=== PATIENT | female | born 1940 | race Caucasian/White ===

== ENCOUNTER 2022-12-13 15:27 | Outpatient (CLI) | payer MEDICARE ==
[2022-12-13 17:06] LABS: #Eosinphils 0.1 10x3/uL (0.0-0.5); #Monocytes 0.3 10x3/uL (0.0-1.1); %Basophils 0.8 % (0.0-2.0); %Eosinophils 2.7 % (0.0-6.0); %Lymphocytes 33.3 % (18.0-47.0); %Monocytes 8.5 % (0.0-10.0); %Neutrophils 54.4 % (40.0-75.0); Hemoglobin 12.8 g/dL (12.0-15.5); Mean Corpuscular HGB CONC 33.5 g/dL (32.0-36.0); Mean Corpuscular Hemoglobin 31.6 pg (27.0-33.0); Mean Corpuscular Volume 94.3 fl (81.6-98.3); Mean Platelet Volume 11.6 fl (7.4-10.4); Platelet Count 204 10x3/uL (150-450); RBC Distribution Width 12.3 % (11.5-14.5); Red Blood Cell (RBC) Count 4.05 10x6/uL (3.90-5.03); White Blood Cell (WBC) Count 3.8 10x3/uL (3.5-10.5)
[2022-12-13 17:15] LABS: Anion Gap 16 mmol/L (10-20); BUN (Urea Nitrogen) 28 mg/dL (9.8-20.1); Calc. Creatinine Clearance 0 mL/min (70-130); Calcium 10.2 mg/dL (7.8-10.44); Carbon Dioxide 21 mmol/L (23-31); Chloride 108 mmol/L (98-107); Estimated GFR 77; Glucose 80 mg/dL (83-110); Potassium 4.3 mmol/L (3.5-5.1); Sodium 141 mmol/L (136-145)
[2022-12-13 17:20] LABS: Large Platelets SLIGHT; Platelet Clumps MARKED; Platelet Morphology Comment PLT clumps seen-ADEQ; RBC Morphology Normal
== END 2022-12-13 15:28 | disposition home or self-care (01) ==
LOC: LABBT 15:27
PROVIDERS: ATTEND Orthopaedic Surgery Hand Surgery
DX: Z01.818 Encounter for other preprocedural examination (principal); L81.4 Other melanin hyperpigmentation
CPT/HCPCS: 80048; 85025; 85652; 93005; 93010

== ENCOUNTER 2023-05-20 21:46 | Inpatient (IN) | payer BC, MEDICARE ==
[2023-05-20 22:24] LABS: #Monocytes 0.7 thou/uL (0.11-0.59); #Neutrophils 6.9 thou/uL (1.40-6.50); %Basophils 0.1 % (0.0-1.0); %Lymphocytes 5.9 % (21.0-51.0); %Neutrophils 85.6 % (42.0-75.0); Hematocrit 29.2 % (36.0-47.0); Hemoglobin 9.9 g/dL (12.0-16.0); Mean Corpuscular HGB CONC 33.9 g/dL (32.0-36.0); Mean Corpuscular Hemoglobin 32.6 pg (27.0-31.0); Mean Corpuscular Volume 96.1 fl (78.0-98.0); Mean Platelet Volume 10.3 fL (7.4-10.4); Platelet Count 160 10x3/uL (130-400); RBC Distribution Width 12.5 % (11.5-14.5); Red Blood Cell (RBC) Count 3.04 mill/uL (4.20-5.40); White Blood Cell (WBC) Count 8.1 10x3/uL (4.8-10.8)
[2023-05-20 22:41] LABS: INR-International Normal Ratio 1.3; PTT 29.6 sec (22.9-36.1); Prothrombin Time 16.2 sec (12.0-14.7)
[2023-05-20 22:48] LABS: ALT (SGPT) 20 U/L (8-55); AST (SGOT) 34 U/L (5-34); Albumin 3.7 g/dL (3.4-4.8); Alkaline Phosphatase 81 U/L (40-110); Anion Gap 10 mmol/L (10-20); BUN (Urea Nitrogen) 18 mg/dL (9.8-20.1); Bilirubin, Total 0.8 mg/dL (0.2-1.2); Calc. Creatinine Clearance 0 mL/min (70-130); Calcium 8.5 mg/dL (7.8-10.44); Carbon Dioxide 22 mmol/L (23-31); Chloride 108 mmol/L (98-107); Estimated GFR 80; Globulin 2.2 g/dL (2.4-3.5); Glucose 124 mg/dL (83-110); Potassium 3.6 mmol/L (3.5-5.1); Protein, Total 5.9 g/dL (5.8-8.1); Sodium 136 mmol/L (136-145)
[2023-05-20] MEDS ORDERED: Ondansetron PF 4 MG/2 ML Vial ONE (23:20)
[2023-05-20] MEDS ORDERED: Morphine 4 MG/ML VIAL ONE (23:20)
[2023-05-21] MEDS ORDERED: Morphine 2 MG/ML VIAL SLOW IVP PRN
[2023-05-21] MEDS ORDERED: Promethazine HCl 25 MG/ML VIAL IM PRN
[2023-05-21] MEDS ORDERED: hydrALAZINE 20 MG/ML VIAL SLOW IVP PRN
[2023-05-21] MEDS ORDERED: Ondansetron PF 4 MG/2 ML Vial IVP PRN
[2023-05-21] MEDS ORDERED: TETANUS, DIPHTHERIA TOX,ADULT (TDVAX) 0.5 ML VIAL IM ONE
[2023-05-21] MEDS ORDERED: Dextrose 50% Abboject 50 ML SYRINGE SLOW IVP PRN
[2023-05-21] MEDS ORDERED: Dextrose 5% in Water 1,000 ML IV PRN
[2023-05-21] MEDS ORDERED: Glucagon 1 MG/ML KIT IM PRN
[2023-05-21] MEDS ORDERED: traMADol HCl 50 MG TAB PO PRN (00:08)
[2023-05-21 01:21] VITALS: BMI 26.9
[2023-05-21] MEDS: Ibuprofen 200 MG TAB PO SCH ×3 (01:31→16:35)
[2023-05-21] MEDS: Cyclobenzaprine 10 MG TAB PO PRN ×2 (01:31→20:58)
[2023-05-21] MEDS: traMADol HCl 50 MG TAB PO SCH ×2 (01:32→05:22)
[2023-05-21] MEDS: Acetaminophen 500 MG TAB PO SCH ×4 (01:33→16:34)
[2023-05-21] MEDS: Lactated Ringer's 1,000 ML IV SCH ×2 (01:34→17:58)
[2023-05-21 05:31] LABS: #Monocytes 0.8 thou/uL (0.11-0.59); #Neutrophils 6.7 thou/uL (1.40-6.50); %Basophils 0.4 % (0.0-1.0); %Eosinophils 0.5 % (0.0-10.0); %Lymphocytes 8.1 % (21.0-51.0); %Monocytes 9.2 % (0.0-10.0); %Neutrophils 81.4 % (42.0-75.0); Hematocrit 28.7 % (36.0-47.0); Hemoglobin 9.5 g/dL (12.0-16.0); Mean Corpuscular HGB CONC 33.1 g/dL (32.0-36.0); Mean Corpuscular Hemoglobin 32.5 pg (27.0-31.0); Mean Corpuscular Volume 98.3 fl (78.0-98.0); Mean Platelet Volume 12.3 fL (7.4-10.4); Platelet Count 102 10x3/uL (130-400); RBC Distribution Width 12.6 % (11.5-14.5); Red Blood Cell (RBC) Count 2.92 mill/uL (4.20-5.40); White Blood Cell (WBC) Count 8.2 10x3/uL (4.8-10.8)
[2023-05-21 06:01] LABS: Anion Gap 12 mmol/L (10-20); BUN (Urea Nitrogen) 20 mg/dL (9.8-20.1); Calc. Creatinine Clearance 58 mL/min (70-130); Calcium 8.7 mg/dL (7.8-10.44); Carbon Dioxide 23 mmol/L (23-31); Chloride 107 mmol/L (98-107); Estimated GFR 82; Glucose 107 mg/dL (83-110); Magnesium 1.9 mg/dL (1.6-2.6); Phosphorus 3.5 mg/dL (2.3-4.7); Potassium 3.7 mmol/L (3.5-5.1); Sodium 138 mmol/L (136-145)
[2023-05-21 07:49] LABS: Bacteria/HPF None Seen HPF (None Seen); Bilirubin Negative (Negative); Blood, Urine Negative (Negative); CAUTI Indications for Culture Alt mental st,lethar; Clarity Clear (Clear); Glucose, Urine (Dipstick) Normal (Negative); Ketone, Urine 10 mg/dL (Negative); Leukocyte Negative Leu/uL (Negative); Nitrite Negative (Negative); Protein, Urine (Dipstick) 20 mg/dL (Neg-Trace); RBC/HPF 0-3 HPF (0-3); Specific Gravity, Urine 1.028 (1.002-1.036); Squamous Epithelial 0-3 HPF (0-3); Urobilinogen Normal mg/dL (Less than 2); WBC/HPF 0-3 HPF (0-3); pH, Urine 5.5 (5.0-9.0)
[2023-05-21 07:50] LABS: Urine Culture Reflex No No
[2023-05-21] MEDS ORDERED: CEFAZOLIN 2 GM in Sodium Chloride 0.9% 100 ML IVPB SCH (08:00)
[2023-05-21] MEDS ORDERED: Ascorbic Acid 500 mg Chewable Tablet PO SCH (09:00)
[2023-05-21] MEDS: Multivitamin W/ Minerals 1 TAB PO SCH (09:11)
[2023-05-21] MEDS: Senokot S 8.6-50 MG TAB PO SCH ×2 (09:13→20:56)
[2023-05-21] MEDS: Polyethylene Glycol 3350 17 GM Packet PO SCH (09:13)
[2023-05-21] MEDS: Famotidine 20 MG TAB PO SCH ×2 (09:14→20:57)
[2023-05-21] MEDS: Metoprolol Tartrate 25 MG TAB PO SCH ×2 (09:14→20:57)
[2023-05-21] MEDS: Ferrous Sulfate 325 MG TAB PO SCH ×2 (09:15→16:34)
[2023-05-21] MEDS: Ascorbic Acid 500 mg Chewable Tablet PO SCH (16:35)
[2023-05-21] MEDS: Atorvastatin Calcium 20 MG TAB PO SCH (20:58)
[2023-05-22] MEDS ORDERED: Lactated Ringer's 1,000 ML IV SCH
[2023-05-22] MEDS: Ibuprofen 200 MG TAB PO SCH ×3 (00:53→18:27)
[2023-05-22] MEDS: Acetaminophen 500 MG TAB PO SCH ×3 (00:54→18:26)
[2023-05-22 05:37] LABS: #Eosinphils 0.2 thou/uL (0.0-0.7); #Monocytes 0.6 thou/uL (0.11-0.59); #Neutrophils 5.4 thou/uL (1.40-6.50); %Basophils 0.3 % (0.0-1.0); %Eosinophils 2.7 % (0.0-10.0); %Lymphocytes 9.6 % (21.0-51.0); %Monocytes 9.1 % (0.0-10.0); %Neutrophils 78.2 % (42.0-75.0); Hematocrit 27.4 % (36.0-47.0); Hemoglobin 9.2 g/dL (12.0-16.0); Mean Corpuscular HGB CONC 33.6 g/dL (32.0-36.0); Mean Corpuscular Hemoglobin 32.7 pg (27.0-31.0); Mean Corpuscular Volume 97.5 fl (78.0-98.0); Mean Platelet Volume 10.7 fL (7.4-10.4); RBC Distribution Width 12.5 % (11.5-14.5); Red Blood Cell (RBC) Count 2.81 mill/uL (4.20-5.40)
[2023-05-22 05:42] LABS: Platelet Count 127 10x3/uL (130-400)
[2023-05-22 05:55] LABS: Phosphorus 2.8 mg/dL (2.3-4.7)
[2023-05-22 06:05] LABS: Anion Gap 3 mmol/L (10-20); BUN (Urea Nitrogen) 28 mg/dL (9.8-20.1); CK (CPK) 544 U/L (29-168); Calc. Creatinine Clearance 50 mL/min (70-130); Calcium 8.7 mg/dL (7.8-10.44); Carbon Dioxide 22 mmol/L (23-31); Chloride 110 mmol/L (98-107); Estimated GFR 69; Glucose 99 mg/dL (83-110); Potassium 3.5 mmol/L (3.5-5.1); Sodium 131 mmol/L (136-145)
[2023-05-22] MEDS ORDERED: Potassium Phosphate 30 MMOL in Sodium Chloride 0.9% 250 ML 250 ML IVPB SCH (09:00)
[2023-05-22] MEDS ORDERED: Bisacodyl 10 MG SUPP PR SCH (09:15)
[2023-05-22] MEDS: Ascorbic Acid 500 mg Chewable Tablet PO SCH ×2 (09:41→18:27)
[2023-05-22] MEDS: Metoprolol Tartrate 25 MG TAB PO SCH ×2 (09:41→20:49)
[2023-05-22] MEDS: Famotidine 20 MG TAB PO SCH ×2 (09:41→20:49)
[2023-05-22] MEDS: Multivitamin W/ Minerals 1 TAB PO SCH (09:42)
[2023-05-22] MEDS: Polyethylene Glycol 3350 17 GM Packet PO SCH (09:42)
[2023-05-22] MEDS: Ferrous Sulfate 325 MG TAB PO SCH ×2 (09:42→18:27)
[2023-05-22] MEDS: Senokot S 8.6-50 MG TAB PO SCH ×2 (09:42→20:49)
[2023-05-22] MEDS ORDERED: fentaNYL PF 100 MCG/2 ML SYRINGE ONE (11:54)
[2023-05-22] MEDS ORDERED: PROPOFOL 200 MG/20 ML VIAL ONE (12:00)
[2023-05-22] MEDS ORDERED: Ondansetron PF 4 MG/2 ML Vial ONE (12:00)
[2023-05-22] MEDS ORDERED: Dexamethasone 20 MG/5 ML VIAL ONE (12:00)
[2023-05-22] MEDS ORDERED: Lidocaine 1% PF 5 ML VIAL ONE (12:00)
[2023-05-22] MEDS ORDERED: PHENYLEPHRINE-NS 100 MCG/ML 10 ML SYRINGE ONE (12:00)
[2023-05-22] MEDS ORDERED: Sodium Chloride 0.9% 100 ML ONE (12:27)
[2023-05-22] MEDS ORDERED: CEFAZOLIN 2 GM VIAL ONE (12:27)
[2023-05-22] MEDS ORDERED: Ondansetron HCl/PF 4 MG/2 ML Vial IVP PRN (13:36)
[2023-05-22] MEDS ORDERED: Promethazine HCl 25 MG/ML VIAL IM PRN (13:36)
[2023-05-22] MEDS ORDERED: fentaNYL 50 mcg/mL 1 mL Vial ONE ×3 (13:46→14:19)
[2023-05-22] MEDS: Acetaminophen/Codeine 30-300mg Tablet PO PRN (20:47)
[2023-05-22] MEDS: Atorvastatin Calcium 20 MG TAB PO SCH (20:49)
[2023-05-22] MEDS: CEFAZOLIN 2 GM in Sodium Chloride 0.9% 100 ML IVPB SCH (20:50)
[2023-05-23] MEDS: Ibuprofen 200 MG TAB PO SCH ×3 (00:02→17:06)
[2023-05-23] MEDS: CEFAZOLIN 2 GM in Sodium Chloride 0.9% 100 ML IVPB SCH (04:58)
[2023-05-23] MEDS: Acetaminophen/Codeine 30-300mg Tablet PO PRN (05:06)
[2023-05-23] MEDS: Acetaminophen 500 MG TAB PO SCH ×4 (05:09→17:07)
[2023-05-23 06:06] LABS: Anion Gap 12 mmol/L (10-20); BUN (Urea Nitrogen) 18 mg/dL (9.8-20.1); Calc. Creatinine Clearance 59 mL/min (70-130); Calcium 8.8 mg/dL (7.8-10.44); Carbon Dioxide 24 mmol/L (23-31); Chloride 104 mmol/L (98-107); Estimated GFR 83; Glucose 125 mg/dL (83-110); Magnesium 1.9 mg/dL (1.6-2.6); Phosphorus 2.7 mg/dL (2.3-4.7); Potassium 4.1 mmol/L (3.5-5.1); Sodium 136 mmol/L (136-145)
[2023-05-23 07:44] LABS: #Monocytes 0.6 thou/uL (0.11-0.59); #Neutrophils 6.6 thou/uL (1.40-6.50); %Basophils 0.1 % (0.0-1.0); %Lymphocytes 5.1 % (21.0-51.0); %Monocytes 7.9 % (0.0-10.0); %Neutrophils 86.6 % (42.0-75.0); Hematocrit 24.7 % (36.0-47.0); Hemoglobin 8.4 g/dL (12.0-16.0); Mean Corpuscular Hemoglobin 32.3 pg (27.0-31.0); Mean Platelet Volume 13.2 fL (7.4-10.4); RBC Distribution Width 12.2 % (11.5-14.5); White Blood Cell (WBC) Count 7.6 10x3/uL (4.8-10.8)
[2023-05-23 07:56] LABS: Platelet Count 64 10x3/uL (130-400)
[2023-05-23] MEDS: Multivitamin W/ Minerals 1 TAB PO SCH (09:07)
[2023-05-23] MEDS: Gemfibrozil 600 MG TAB PO SCH ×2 (09:07→17:07)
[2023-05-23] MEDS: Ascorbic Acid 500 mg Chewable Tablet PO SCH ×2 (09:07→17:06)
[2023-05-23] MEDS: Famotidine 20 MG TAB PO SCH ×2 (09:07→21:10)
[2023-05-23] MEDS: Senokot S 8.6-50 MG TAB PO SCH ×2 (09:07→21:10)
[2023-05-23] MEDS: Metoprolol Tartrate 25 MG TAB PO SCH ×2 (09:07→21:10)
[2023-05-23] MEDS: Polyethylene Glycol 3350 17 GM Packet PO SCH (09:08)
[2023-05-23] MEDS: Ferrous Sulfate 325 MG TAB PO SCH ×2 (09:09→17:06)
[2023-05-23] MEDS: Cyclobenzaprine 10 MG TAB PO PRN (10:26)
[2023-05-23] MEDS ORDERED: Ferrous Sulfate 325 MG TAB PO SCH (17:00)
[2023-05-23] MEDS ORDERED: Ascorbic Acid 500 mg Chewable Tablet PO SCH (17:00)
[2023-05-23] MEDS: Atorvastatin Calcium 20 MG TAB PO SCH (21:09)
[2023-05-24] MEDS: Ibuprofen 200 MG TAB PO SCH ×4 (00:35→23:32)
[2023-05-24] MEDS: Acetaminophen 500 MG TAB PO SCH ×5 (00:36→23:33)
[2023-05-24] MEDS: Gemfibrozil 600 MG TAB PO SCH ×2 (08:09→16:25)
[2023-05-24] MEDS: Ascorbic Acid 500 mg Chewable Tablet PO SCH ×2 (08:09→16:25)
[2023-05-24] MEDS: Multivitamin W/ Minerals 1 TAB PO SCH (08:09)
[2023-05-24] MEDS: Metoprolol Tartrate 25 MG TAB PO SCH ×2 (08:11→20:24)
[2023-05-24] MEDS: Ferrous Sulfate 325 MG TAB PO SCH ×2 (08:11→16:25)
[2023-05-24] MEDS: Famotidine 20 MG TAB PO SCH ×2 (08:11→20:24)
[2023-05-24] MEDS: Polyethylene Glycol 3350 17 GM Packet PO SCH (08:13)
[2023-05-24] MEDS: Senokot S 8.6-50 MG TAB PO SCH ×2 (08:13→20:24)
[2023-05-24] MEDS: Losartan 25 MG TAB PO SCH (08:59)
[2023-05-24 09:13] LABS: #Eosinphils 0.3 thou/uL (0.0-0.7); #Monocytes 0.4 thou/uL (0.11-0.59); #Neutrophils 3.2 thou/uL (1.40-6.50); %Basophils 0.4 % (0.0-1.0); %Eosinophils 6.6 % (0.0-10.0); %Lymphocytes 22.6 % (21.0-51.0); %Monocytes 7.7 % (0.0-10.0); %Neutrophils 62.5 % (42.0-75.0); Hematocrit 29.9 % (36.0-47.0); Mean Corpuscular HGB CONC 33.4 g/dL (32.0-36.0); Mean Corpuscular Hemoglobin 32.4 pg (27.0-31.0); Mean Corpuscular Volume 96.8 fl (78.0-98.0); Mean Platelet Volume 12.2 fL (7.4-10.4); RBC Distribution Width 12.7 % (11.5-14.5); Red Blood Cell (RBC) Count 3.09 mill/uL (4.20-5.40); White Blood Cell (WBC) Count 5.2 10x3/uL (4.8-10.8)
[2023-05-24 09:14] LABS: Platelet Count 87 10x3/uL (130-400)
[2023-05-24] MEDS: Acetaminophen/Codeine 30-300mg Tablet PO PRN (18:55)
[2023-05-24] MEDS: Atorvastatin Calcium 20 MG TAB PO SCH (20:24)
[2023-05-25] MEDS: Acetaminophen 500 MG TAB PO SCH ×2 (05:21→12:02)
[2023-05-25] MEDS: Ascorbic Acid 500 mg Chewable Tablet PO SCH ×2 (08:10→17:12)
[2023-05-25] MEDS: Multivitamin W/ Minerals 1 TAB PO SCH (08:10)
[2023-05-25] MEDS: Gemfibrozil 600 MG TAB PO SCH ×2 (08:10→17:12)
[2023-05-25] MEDS: Famotidine 20 MG TAB PO SCH ×2 (08:11→21:28)
[2023-05-25] MEDS: Metoprolol Tartrate 25 MG TAB PO SCH ×2 (08:12→21:28)
[2023-05-25] MEDS: Losartan 25 MG TAB PO SCH (08:12)
[2023-05-25] MEDS: Ferrous Sulfate 325 MG TAB PO SCH ×2 (08:12→17:13)
[2023-05-25] MEDS: Ibuprofen 200 MG TAB PO SCH ×3 (08:13→23:37)
[2023-05-25] MEDS: Senokot S 8.6-50 MG TAB PO SCH ×2 (08:27→21:27)
[2023-05-25] MEDS: Polyethylene Glycol 3350 17 GM Packet PO SCH (08:27)
[2023-05-25] MEDS: Acetaminophen 325 MG TAB PO SCH ×3 (12:04→23:36)
[2023-05-25 12:42] LABS: #Eosinphils 0.2 thou/uL (0.0-0.7); #Monocytes 0.6 thou/uL (0.11-0.59); #Neutrophils 4.4 thou/uL (1.40-6.50); %Basophils 0.6 % (0.0-1.0); %Eosinophils 3.4 % (0.0-10.0); %Lymphocytes 15.1 % (21.0-51.0); %Monocytes 9.2 % (0.0-10.0); %Neutrophils 71.1 % (42.0-75.0); Hematocrit 35.2 % (36.0-47.0); Hemoglobin 11.2 g/dL (12.0-16.0); Mean Corpuscular HGB CONC 31.8 g/dL (32.0-36.0); Mean Corpuscular Hemoglobin 32.7 pg (27.0-31.0); Mean Corpuscular Volume 102.6 fl (78.0-98.0); Mean Platelet Volume 10.5 fL (7.4-10.4); Platelet Count 190 10x3/uL (130-400); RBC Distribution Width 13.2 % (11.5-14.5); Red Blood Cell (RBC) Count 3.43 mill/uL (4.20-5.40); White Blood Cell (WBC) Count 6.2 10x3/uL (4.8-10.8)
[2023-05-25 17:37] LABS: #Eosinphils 0.2 thou/uL (0.0-0.7); #Monocytes 0.6 thou/uL (0.11-0.59); #Neutrophils 3.8 thou/uL (1.40-6.50); %Basophils 0.5 % (0.0-1.0); %Eosinophils 3.6 % (0.0-10.0); %Monocytes 10.3 % (0.0-10.0); %Neutrophils 68.1 % (42.0-75.0); Hematocrit 35.3 % (36.0-47.0); Mean Corpuscular Hemoglobin 32.1 pg (27.0-31.0); Mean Platelet Volume 11.3 fL (7.4-10.4); Platelet Count 146 10x3/uL (130-400); RBC Distribution Width 13.2 % (11.5-14.5); Red Blood Cell (RBC) Count 3.74 mill/uL (4.20-5.40); White Blood Cell (WBC) Count 5.5 10x3/uL (4.8-10.8)
[2023-05-25 17:40] LABS: Mean Corpuscular Volume 94.4 fl (78.0-98.0)
[2023-05-25] MEDS ORDERED: Apixaban 2.5 MG TAB PO SCH (21:00)
[2023-05-25] MEDS: Atorvastatin Calcium 20 MG TAB PO SCH (21:28)
[2023-05-26] MEDS: Acetaminophen 325 MG TAB PO SCH ×3 (06:30→17:33)
[2023-05-26] MEDS: Gemfibrozil 600 MG TAB PO SCH ×2 (06:30→17:33)
[2023-05-26 06:41] LABS: #Eosinphils 0.2 thou/uL (0.0-0.7); #Monocytes 0.5 thou/uL (0.11-0.59); #Neutrophils 3.6 thou/uL (1.40-6.50); %Basophils 0.4 % (0.0-1.0); %Eosinophils 4.6 % (0.0-10.0); %Lymphocytes 16.7 % (21.0-51.0); %Monocytes 9.2 % (0.0-10.0); %Neutrophils 68.5 % (42.0-75.0); Hemoglobin 9.5 g/dL (12.0-16.0); Mean Corpuscular HGB CONC 33.9 g/dL (32.0-36.0); Mean Corpuscular Hemoglobin 32.5 pg (27.0-31.0); Mean Corpuscular Volume 95.9 fl (78.0-98.0); Mean Platelet Volume 11.5 fL (7.4-10.4); RBC Distribution Width 13.2 % (11.5-14.5); Red Blood Cell (RBC) Count 2.92 mill/uL (4.20-5.40); White Blood Cell (WBC) Count 5.2 10x3/uL (4.8-10.8)
[2023-05-26 07:21] LABS: Platelet Count 40 10x3/uL (130-400)
[2023-05-26] MEDS: Ascorbic Acid 500 mg Chewable Tablet PO SCH ×2 (09:11→17:33)
[2023-05-26] MEDS: Ferrous Sulfate 325 MG TAB PO SCH ×2 (09:12→17:33)
[2023-05-26] MEDS: Multivitamin W/ Minerals 1 TAB PO SCH (09:12)
[2023-05-26] MEDS: Senokot S 8.6-50 MG TAB PO SCH ×2 (09:12→21:36)
[2023-05-26] MEDS: Losartan 25 MG TAB PO SCH (09:12)
[2023-05-26] MEDS: Polyethylene Glycol 3350 17 GM Packet PO SCH (09:13)
[2023-05-26 09:15] LABS: #Eosinphils 0.3 thou/uL (0.0-0.7); #Monocytes 0.5 thou/uL (0.11-0.59); #Neutrophils 4.4 thou/uL (1.40-6.50); %Basophils 0.6 % (0.0-1.0); %Eosinophils 4.8 % (0.0-10.0); %Lymphocytes 17.3 % (21.0-51.0); %Monocytes 8.4 % (0.0-10.0); Hematocrit 33.3 % (36.0-47.0); Hemoglobin 11.3 g/dL (12.0-16.0); Mean Corpuscular HGB CONC 33.9 g/dL (32.0-36.0); Mean Corpuscular Hemoglobin 32.3 pg (27.0-31.0); Mean Corpuscular Volume 95.1 fl (78.0-98.0); Mean Platelet Volume 11.7 fL (7.4-10.4); Platelet Count 92 10x3/uL (130-400); RBC Distribution Width 13.2 % (11.5-14.5); White Blood Cell (WBC) Count 6.4 10x3/uL (4.8-10.8)
[2023-05-26] MEDS: Metoprolol Tartrate 25 MG TAB PO SCH ×2 (09:27→21:35)
[2023-05-26] MEDS: Atorvastatin Calcium 20 MG TAB PO SCH (21:35)
[2023-05-26] MEDS: Cyclobenzaprine 10 MG TAB PO PRN (21:36)
[2023-05-27] MEDS: Acetaminophen 325 MG TAB PO SCH ×2 (00:28→06:19)
[2023-05-27 05:34] LABS: #Eosinphils 0.2 thou/uL (0.0-0.7); #Monocytes 0.5 thou/uL (0.11-0.59); #Neutrophils 4.1 thou/uL (1.40-6.50); %Basophils 0.4 % (0.0-1.0); %Lymphocytes 15.5 % (21.0-51.0); %Monocytes 8.7 % (0.0-10.0); %Neutrophils 71.7 % (42.0-75.0); Hematocrit 28.7 % (36.0-47.0); Hemoglobin 9.6 g/dL (12.0-16.0); Mean Corpuscular HGB CONC 33.4 g/dL (32.0-36.0); Mean Corpuscular Volume 95.7 fl (78.0-98.0); Mean Platelet Volume 12.5 fL (7.4-10.4); RBC Distribution Width 13.1 % (11.5-14.5); White Blood Cell (WBC) Count 5.7 10x3/uL (4.8-10.8)
[2023-05-27 05:41] LABS: Platelet Count 47 10x3/uL (130-400)
[2023-05-27 06:18] LABS: CellaVision Operator ID lab.abc; Platelet Adequacy Comment Platelets Decreased; Polychromasia SLIGHT = 2-3 cells HPF (0-2); RBC Morphology Within Normal Limits; Smudge Cells 13.1 %
[2023-05-27] MEDS ORDERED: Non-Formulary Item 1 EACH (Losartan Potassium [Losartan Potassium] 100 MG Tablet) PO SCH (09:00)
[2023-05-27] MEDS ORDERED: Apixaban 2.5 MG TAB PO SCH (09:00)
[2023-05-27] MEDS ORDERED: Multivitamin w/Zinc Stress 1 TAB PO SCH (09:00)
[2023-05-27] MEDS ORDERED: VITAMIN D3 PO SCH (09:00)
[2023-05-27] MEDS ORDERED: Aspirin Chewable 81 MG TAB PO SCH (09:00)
[2023-05-27] MEDS ORDERED: Losartan 25 MG TAB PO SCH (09:00)
[2023-05-27] MEDS ORDERED: CALCIUM CITRATE PO SCH (09:00)
[2023-05-27] MEDS ORDERED: EAC PO SCH (09:00)
[2023-05-27] MEDS ORDERED: [UNRECOGNIZED DRUG - OTHER] PO SCH (09:00)
[2023-05-27] MEDS ORDERED: Non-Formulary Item 1 EACH (Vitamin B Complex [Vitamin B Complex] 1 CAP Capsule) PO SCH (09:00)
[2023-05-27] MEDS ORDERED: Calcium Carbonate 600 MG + Vit D TAB PO SCH (09:00)
[2023-05-27] MEDS: Ferrous Sulfate 325 MG TAB PO SCH ×2 (09:13→17:24)
[2023-05-27] MEDS: Gemfibrozil 600 MG TAB PO SCH ×2 (09:14→17:24)
[2023-05-27] MEDS: Ascorbic Acid 500 mg Chewable Tablet PO SCH ×2 (09:14→17:24)
[2023-05-27] MEDS: Multivitamin W/ Minerals 1 TAB PO SCH (09:15)
[2023-05-27] MEDS: Senokot S 8.6-50 MG TAB PO SCH (09:15)
[2023-05-27] MEDS: Polyethylene Glycol 3350 17 GM Packet PO SCH (09:15)
[2023-05-27] MEDS: Metoprolol Tartrate 25 MG TAB PO SCH (09:15)
[2023-05-27] MEDS: Acetaminophen 500 MG TAB PO SCH ×3 (11:46→17:27)
[2023-05-27 17:13] VITALS: BP 150/77; TEMP 98.3
[2023-05-27] MEDS ORDERED: Apixaban 5 MG TAB PO SCH (21:00)
== END 2023-05-27 19:13 | DRG 482 ==
LOC: ERS 21:46 → SURG A 05-21 00:08
PROVIDERS: ADMIT Surgery; ATTEND Surgery
PROC: 0QS706Z Reposition Left Upper Femur with Intramedullary Internal Fixation Device, Open Approach (ICD-10-PCS; principal; 2023-05-22)
DX: S72.142A Displaced intertrochanteric fracture of left femur, initial encounter for closed fracture (principal); W18.30XA Fall on same level, unspecified, initial encounter; I48.91 Unspecified atrial fibrillation; I10 Essential (primary) hypertension; E78.5 Hyperlipidemia, unspecified; E87.8 Other disorders of electrolyte and fluid balance, not elsewhere classified; D69.6 Thrombocytopenia, unspecified; Z79.82 Long term (current) use of aspirin; Z79.01 Long term (current) use of anticoagulants; Z79.899 Other long term (current) drug therapy; Z90.710 Acquired absence of both cervix and uterus; Z90.89 Acquired absence of other organs; Z98.51 Tubal ligation status
CPT/HCPCS: 36415; 70450; 71045; 72125; 80048; 80053; 81001; 82550; 83735; 84100; 85025; 85610; 85730; 96374; 96375; C1713; J0360; J1100; J2270; J2405; J2704; J3010; J3490; J7050; J7120